=== PATIENT | female | born 1955 | race Caucasian/White ===

== ENCOUNTER 2018-07-25 16:12 | Inpatient (IN) | payer OTHER ==
[~2018-07-25] VITALS: Ht 170.2 cm; Wt 67.1 kg
[2018-07-25] VITALS (11 sets, daily range): BP systolic 131–208; BP diastolic 61–106
[2018-07-25] MEDS ORDERED: KETOROLAC 30 MG/ML VIAL. IV ONE (16:45)
--- NOTE | 2018-07-25 16:48 | RAD ---
CT CODE STROKE HEAD WO History: Code stroke Comparison: None. Technique: Noncontrast CT imaging was performed of the head. Exposure: One or more of the following individualized dose reduction techniques were utilized for this examination: 1. Automated exposure control 2. Adjustment of the mA and/or kV according to patient size 3. Use of iterative reconstruction technique. Findings: No acute extra-axial or parenchymal hemorrhage is identified. There is no new significant intra-axial mass effect, midline shift, or extra-axial fluid collection. There are again may be what represents a small right superior cerebellar arachnoid cyst. The pineda-white differentiation of the major vascular territories is preserved. The ventricles, sulci, and cisterns are within normal limits in size and configuration. The mastoid air cells and the visualized paranasal sinuses are aerated. No acute calvarial abnormality is identified. Impression: 1. No acute intracranial abnormality is identified. If there is concern for evolving or acute ischemia, followup CT or MRI could be beneficial. FOR INTERNAL CODING PURPOSES Critical result: Findings discussed with ZULEYKA WATSON at 07/25/2018 4:43 PM. RESULT CODE: (C) Electronically signed by: José Luis Castro MD (07/25/2018 4:45 PM) [id number]
[2018-07-25 16:55] LABS: BASO # 0.1 x10^3/uL (0.0-0.2); BASO % 1 % (0-3); EOS # 0.1 x10^3/uL (0.0-0.7); EOS % 2 % (0-3); HEMATOCRIT 48.7 % (36.0-47.0); HEMOGLOBIN 16.3 g/dL (12.0-15.5); LYMPH # 2.6 x10^3/uL (1.0-4.8); LYMPH % 41 % (24-48); MEAN CORPUSCULAR HEMOGLOBIN 29 pg (25-35); MEAN CORPUSCULAR HGB CONC 34 g/dL (31-37); MEAN CORPUSCULAR VOLUME 86 fL (79-100); MONO # 0.4 x10^3/uL (0.0-1.1); MONO % 6 % (0-9); NEUT # 3.1 x10^3uL (1.8-7.7); NEUT % 50 % (31-73); PLATELET COUNT 216 x10^3/uL (140-400); RED BLOOD COUNT 5.69 x10^6/uL (3.50-5.40); RED CELL DISTRIBUTION WIDTH 14.8 % (11.5-14.5); WHITE BLOOD COUNT 6.2 x10^3/uL (4.0-11.0)
--- NOTE | 2018-07-25 16:57 | RAD ---
EXAM: Chest, single view. HISTORY: Headache. Memory loss. COMPARISON: None. FINDINGS: A frontal view of the chest is obtained. There is no infiltrate, pleural effusion or pneumothorax. The heart is normal in size. IMPRESSION: No acute pulmonary finding. Electronically signed by: Vi Carbajal MD (07/25/2018 4:54 PM) [facility]
[2018-07-25 17:11] LABS: ALBUMIN 4.7 g/dL (3.4-5.0); ALBUMIN/GLOBULIN RATIO 1.5 (1.0-1.7); CALCIUM 9.6 mg/dL (8.5-10.1); CREATININE 0.8 mg/dL (0.6-1.0); GFR 72.7; POTASSIUM 3.2 mmol/L (3.5-5.1); TOTAL BILIRUBIN 0.4 mg/dL (0.2-1.0); TOTAL PROTEIN 7.8 g/dL (6.4-8.2)
--- NOTE | 2018-07-25 17:20 | PHYS DOC ---
Past History Past Medical History: Anxiety, Hypertension, Other (headache) Smoking: Non-smoker Adult General Chief Complaint Chief Complaint: ALTERED MENTAL STATUS HPI HPI Patient is a 62 year old female who is in by her because of memory loss and headache. Patient state they had an argument at 10 AM today and around 11 AM she complaining of headache and around 1440 (1.5 hours prior to arrival to ER) she suddenly lost her memory and didn't know what she was doing and forget about this morning argument and the trip her had recently to [place] for 3 weeks. Patient states she does not remember what happened to her and how she got to the car and came to the hospital. Patient states she thinks she has migraine headaches with aura. Patient rated her headache 6/10 and complaining of nausea without focal neuro deficit. Patient states she gets episodes of headaches frequently without diagnose of headache. Patient does not have any medical problem and denies using drugs and alcohol. Review of Systems Review of Systems Constitutional: Denies fever or chills [] Eyes: Denies change in visual acuity, redness, or eye pain [] HENT: Denies nasal congestion or sore throat [] Respiratory: Denies cough or shortness of breath [] Cardiovascular: No additional information not addressed in HPI [] GI: Denies abdominal pain, vomiting, bloody stools or diarrhea , reports nausea [] : Denies dysuria or hematuria [] Musculoskeletal: Denies back pain or joint pain [] Integument: Denies rash or skin lesions [] Neurologic: Reports headache, denies focal weakness or sensory changes [] Endocrine: Denies polyuria or polydipsia [] All other systems were reviewed and found to be within normal limits, except as documented in this note. Current Medications Current Medications Current Medications Medications (Trade) Dose Ordered Sig/Júnior Start Time Stop Time Status Last Admin Dose Admin Ketorolac Tromethamine (Toradol 30mg Vial) 30 mg 1X ONCE 07/25/18 16:45 07/25/18 16:55 DC 07/25/18 16:45 30 MG Allergies Allergies Allergies Coded Allergies Type Severity Reaction Last Updated Verified No Known Drug Allergies 07/25/18 No Physical Exam Physical Exam Constitutional: Well developed, well nourished, no acute distress, non-toxic appearance. [] HENT: Normocephalic, atraumatic, bilateral external ears normal, oropharynx moist, no oral exudates, nose normal. [] Eyes: PERRLA, EOMI, conjunctiva normal, no discharge. [] Neck: Normal range of motion, no tenderness, supple, no stridor. [] Cardiovascular:Heart rate regular rhythm, no murmur [] Lungs & Thorax: Bilateral breath sounds clear to auscultation [] Abdomen: Bowel sounds normal, soft, no tenderness, no masses, no pulsatile masses. [] Skin: Warm, dry, no erythema, no rash. [] Back: No tenderness, no CVA tenderness. [] Extremities: No tenderness, no cyanosis, no clubbing, ROM intact, no edema. [] Neurologic: Alert and oriented X 3, normal motor function, normal sensory function, no focal deficits noted. [] Psychologic: Affect anxious, judgement normal, mood normal. [] Current Patient Data Lab Results Laboratory Tests Test 07/25/18 16:20 07/25/18 16:33 White Blood Count 6.2 x10^3/uL (4.0-11.0) Red Blood Count 5.69 x10^6/uL (3.50-5.40) H Hemoglobin 16.3 g/dL (12.0-15.5) H Hematocrit 48.7 % (36.0-47.0) H Mean Corpuscular Volume 86 fL (79-100) Mean Corpuscular Hemoglobin 29 pg (25-35) Mean Corpuscular Hemoglobin Concent 34 g/dL (31-37) Red Cell Distribution Width 14.8 % (11.5-14.5) H Platelet Count 216 x10^3/uL (140-400) Neutrophils (%) (Auto) 50 % (31-73) Lymphocytes (%) (Auto) 41 % (24-48) Monocytes (%) (Auto) 6 % (0-9) Eosinophils (%) (Auto) 2 % (0-3) Basophils (%) (Auto) 1 % (0-3) Neutrophils # (Auto) 3.1 x10^3uL (1.8-7.7) Lymphocytes # (Auto) 2.6 x10^3/uL (1.0-4.8) Monocytes # (Auto) 0.4 x10^3/uL (0.0-1.1) Eosinophils # (Auto) 0.1 x10^3/uL (0.0-0.7) Basophils # (Auto) 0.1 x10^3/uL (0.0-0.2) Glucose (Fingerstick) 120 mg/dL (70-99) H EKG EKG EKG interpreted by me. EKG at 1635 showed sinus tachycardia at rate of 109, few PVCs, left atrial abnormalities, poor R-wave progress in anteroseptal leads, no acute ST and T-wave abnormalities. Radiology/Procedures Radiology/[place] [address] IMAGING REPORT Signed PATIENT: ABILIO SANCHEZ ACCOUNT: [id number] : 1955 LOCATION: ER AGE: 62 SEX: F EXAM STATUS: REG ER ORD. PHYSICIAN: ZULEYKA WATSON MD REASON: headache and memory loss PROCEDURE: PORTABLE CHEST 1V EXAM: Chest, single view. HISTORY: Headache. Memory loss. COMPARISON: None. FINDINGS: A frontal view of the chest is obtained. There is no infiltrate, pleural effusion or pneumothorax. The heart is normal in size. IMPRESSION: No acute pulmonary finding. Electronically signed by: Vi Prabhakar MD (07/25/2018 4:54 PM) [place] [id number] DICTATED AND SIGNED BY: VI PRABHAKAR MD DATE: 07/25/18 314 CC: ROSALINDA HAIDER MD; ZULEYKA WATSON MD ~ [place] [id number] IMAGING REPORT Signed PATIENT: ABILIO SANCHEZ ACCOUNT: [id number] : 1955 LOCATION: ER AGE: 62 SEX: F EXAM STATUS: REG ER ORD. PHYSICIAN: ZULEYKA WATSON MD REASON: ams PROCEDURE: CT CODE STROKE HEAD WO CT CODE STROKE HEAD WO History: Code stroke Comparison: None. Technique: Noncontrast CT imaging was performed of the head. Exposure: One or more of the following individualized dose reduction techniques were utilized for this examination: 1. Automated exposure control 2. Adjustment of the mA and/or kV according to patient size 3. Use of iterative reconstruction technique. Findings: No acute extra-axial or parenchymal hemorrhage is identified. There is no new significant intra-axial mass effect, midline shift, or extra-axial fluid collection. There are again may be what represents a small right superior cerebellar arachnoid cyst. The pineda-white differentiation of the major vascular territories is preserved. The ventricles, sulci, and cisterns are within normal limits in size and configuration. The mastoid air cells and the visualized paranasal sinuses are aerated. No acute calvarial abnormality is identified. Impression: 1. No acute intracranial abnormality is identified. If there is concern for evolving or acute ischemia, followup CT or MRI could be beneficial. FOR INTERNAL CODING PURPOSES Critical result: Findings discussed with ZULEYKA WATSON at 07/25/2018 4:43 PM. RESULT CODE: (C) Electronically signed by: Shant Castro MD (07/25/2018 4:45 PM) [id number] DICTATED AND SIGNED BY: SHANT CASTRO MD DATE: 07/25/181641 CC: ROSALINDA HAIDER MD; ZULEYKA WATSON MD ~ Course & Med Decision Making Course & Med Decision Making Pertinent Labs and Imaging studies reviewed. (See chart for details) Evaluation of patient in ER showed 62-year-old female patient brought in by her because sudden onset of memory loss. Patient was anxious in ER and was not able to tell the month but did not have any focal neuro deficit. Patient was not a candidate for TPA because of NIHSS scale of 1. Patient gradually became calm. Patient had blood pressure more than 200 and states she doesn't have any medical problem but her son states she has history of hypertension without taking any medication. Patient's blood pressure stayed more than 200 and she treated with labetalol with decrease of tachycardia and elevation of blood pressure. Labs was unremarkable except for increase of hemoglobin and hematocrit. Plan to admit patient with diagnosis of headache and hypertensive urgency. Dr Newell accepted admission. Dragon Disclaimer Dragon Disclaimer This electronic medical record was generated, in whole or in part, using a voice recognition dictation system. Departure Departure: Impression: Primary Impression: Hypertensive emergency Additional Impressions: Headache Confusion Anxiety Disposition: 09 ADMITTED INPATIENT (at 1800) Admitting Physician: Analilia Newell (accepted admission at 1759) Condition: IMPROVED Referrals: ROSALINDA HAIDER MD (PCP) NIHSS - ED NIH Stroke Scale: NIH Stroke Scale Response (Comments) Value Level of Consciousness: 0 Alert/Responsive 0 LOC Questions: 1 Answers one correctly 1 LOC Commands: 0 Performs both tasks 0 Best Gaze: 0 Normal 0 Visual: 0 No visual loss 0 Facial Palsy: 0 Normal, symmetrical 0 Motor - Left Arm 0 No drift 0 Motor - Right Arm 0 No drift 0 Motor - Left Leg 0 No drift 0 Motor: Right Leg 0 No drift 0 Limb Ataxia: 0 Absent 0 Sensory: 0 No loss 0 Best Language: 0 Normal 0 Dysathria: 0 Normal 0 Extinction and Inattention: 0 Normal 0 Total 1 Problem Qualifiers ZULEYKA WATSON MD Jul 25, 2018 17:19
[2018-07-25] MEDS ORDERED: LABETALOL 20 MG/4 ML DISP.SYRIN. IVP ONE (17:30)
[2018-07-25] MEDS ORDERED: ONDANSETRON PF 4 MG/2 ML VIAL. IV ONE (17:30)
[2018-07-25] MEDS ORDERED: LABETALOL 100 MG/20 ML VIAL. IV ONE (17:31)
--- NOTE | 2018-07-25 18:27 | EKG ---
[address] [address] Test Date: 2018-07-25 Test Time: 16:35:31 Pat Name: ABILIO SANCHEZ Department: Room: Gender: F Mouthpiece Maker: JAYLON : 1955 Requested By: ZULEYKA WATSON Order Number: [id number] Reading MD: Neil Guardado Measurements Intervals [place] Rate: 109 P: 70 LA: 128 QRS: 40 QRSD: 94 T: 47 QT: 326 QTc: 441 Interpretive Statements SINUS TACHYCARDIA VENTRICULAR PREMATURE COMPLEX(ES) LEFT ATRIAL ABNORMALITY Electronically Signed On 08-01-2018 11:02:00 MANUFACTURING OPERATOR by Neil Guardado
[2018-07-25] MEDS ORDERED: POTASSIUM CHLORIDE 20 MEQ/15 ML ORAL LIQUID. PO ONE (18:45)
[2018-07-25] MEDS ORDERED: hydrALAZINE 20 MG/ML VIAL. IV ONE (19:00)
[2018-07-25 19:34] LABS: BARBITURATES NEG (NEG); BENZODIAZEPINES NEG (NEG); CANNABINOIDS NEG (NEG); COCAINE NEG (NEG); METHADONE NEG (NEG); OPIATES NEG (NEG); PHENCYCLIDINE NEG (NEG)
[2018-07-25 19:37] LABS: AMPHETAMINE/METHAMPHETAMINE NEG (NEG)
[2018-07-25 19:46] LABS: BILIRUBIN,URINE NEG (NEG); CLARITY,URINE CLEAR; COLOR,URINE STRAW; GLUCOSE,URINE NEG (NEG); NITRITE,URINE NEG (NEG); RBC,URINE OCC /HPF (0-2); UROBILINOGEN,URINE 0.2 mg/dL (0.2 mg/dL)
[2018-07-25 19:51] LABS: BACTERIA,URINE FEW /HPF (0-FEW)
[2018-07-25 19:52] LABS: WBC,URINE OCC /HPF (0-4)
[2018-07-25] MEDS ORDERED: ACETAMINOPHEN 325 MG TABLET PO PRN (21:15)
[2018-07-25] MEDS: LORazepam 0.5 MG TABLET PO PRN (21:20)
[2018-07-25 22:34] LABS: SQUAMOUS EPITHELIAL CELL,UR FEW /LPF
[2018-07-26] VITALS (21 sets, daily range): BP systolic 111–190; BP diastolic 55–97
[2018-07-26 06:16] LABS: BASO % 1 % (0-3); EOS # 0.1 x10^3/uL (0.0-0.7); EOS % 2 % (0-3); HEMATOCRIT 42.7 % (36.0-47.0); HEMOGLOBIN 14.5 g/dL (12.0-15.5); LYMPH # 2.3 x10^3/uL (1.0-4.8); LYMPH % 38 % (24-48); MEAN CORPUSCULAR HEMOGLOBIN 29 pg (25-35); MEAN CORPUSCULAR HGB CONC 34 g/dL (31-37); MEAN CORPUSCULAR VOLUME 84 fL (79-100); MONO # 0.6 x10^3/uL (0.0-1.1); MONO % 10 % (0-9); NEUT % 50 % (31-73); PLATELET COUNT 231 x10^3/uL (140-400); RED BLOOD COUNT 5.06 x10^6/uL (3.50-5.40); RED CELL DISTRIBUTION WIDTH 15.3 % (11.5-14.5); WHITE BLOOD COUNT 6.1 x10^3/uL (4.0-11.0)
[2018-07-26 06:31] LABS: ALBUMIN 3.8 g/dL (3.4-5.0); ALBUMIN/GLOBULIN RATIO 1.3 (1.0-1.7); CREATININE 0.9 mg/dL (0.6-1.0); GFR 63.4; POTASSIUM 3.4 mmol/L (3.5-5.1); TOTAL BILIRUBIN 0.5 mg/dL (0.2-1.0); TOTAL PROTEIN 6.8 g/dL (6.4-8.2)
[2018-07-26] MEDS ORDERED: POTASSIUM CHLORIDE 20 MEQ TABLET.ER. PO ONE (07:30)
--- NOTE | 2018-07-26 09:49 | PDOC2 ---
CONSULT Date of Admission DATE: 07/26/18 TIME: 09:46 Reason for Consult: accelerated hypertension Problem List Problems Medical Problems: (1) Anxiety Status: Acute (2) Confusion Status: Acute (3) Headache Status: Acute (4) Hypertensive emergency Status: Acute History of Present Illness Ms Ferreira is a 62 year old female with history of hypertension and atypical migraine (aura but no pain) who presented to the ED with complaints of a period of amnesia and confusion. She apparently was angry with her when she developed aura and then became confused, disoriented and acting out of character. She denies memory of these events. On arrival to the ED she was apparently still disoriented and blood pressure was very elevated. She was treated with labetalol and Cardene, admitted and consult was called. Her blood pressure normalized after about 2 hours on the Cardene which is now off. She reports "white coat syndrome" She denies any chest pain, dyspnea, palpitations, lightheadedness or syncope. She is hesitant to take antihypertensives as she reports lower pressures when at home. Past Medical History hypertension currently on no medications and atypical migraine Past Surgical History appendectomy and colonoscopy. Family History father with lung cancer, mother with brain tumor. No premature coronary disease. Social History with three children. Non smoker. Occasional ETOH, Marijuana once weekly. No other illicit drugs Current Medications Current Medications Ketorolac Tromethamine (Toradol 30mg Vial) 30 mg 1X ONCE IV Last administered on 07/25/18at 16:45; Start 07/25/18 at 16:45; Stop 07/25/18 at 16:55; Status DC Ondansetron HCl (Zofran) 4 mg 1X ONCE IV Last administered on 07/25/18at 17:30 ; Start 07/25/18 at 17:30; Stop 07/25/18 at 17:31; Status DC Labetalol HCl (Normodyne) 10 mg 1X ONCE IVP Last administered on 07/25/18at 17: 30; Start 07/25/18 at 17:30; Stop 07/25/18 at 17:32; Status DC Labetalol HCl (Normodyne) 100 mg STK-MED ONCE IV ; Start 07/25/18 at 17:31; Stop 07/25/18 at 17:32; Status DC Potassium Chloride (KCl Oral Soln) 40 meq 1X ONCE PO Last administered on 07/25 18:41; Start 07/25/18 at 18:45; Stop 07/25/18 at 18:46; Status DC Hydralazine HCl (Apresoline) 20 mg 1X ONCE IV Last administered on 07/25/18at 19:03; Start 07/25/18 at 19:00; Stop 07/25/18 at 19:01; Status DC Nicardipine HCl 50 mg/Sodium Chloride 270 ml @ 27 mls/hr CONT PRN IV SEE I/O RECORD Last administered on 07/25/18at 21:37; Start 07/25/18 at 21:15 Lorazepam (Ativan) 0.5 mg PRN Q4HRS PRN PO ANXIETY / AGITATION Last administered on 07/25/18 21:20; Start 07/25/18 at 21:15 Acetaminophen (Tylenol) 650 mg PRN Q6HRS PRN PO PAIN / TEMP Last administered on 07/25/18 21:20; Start 07/25/18 at 21:15 Potassium Chloride (Klor-Con) 40 meq 1X ONCE PO Last administered on at 09:02; Start 07/26/18 at 07:30; Stop 07/26/18 at 07:31; Status DC Aspirin (Aspirin Enteric Coated) 81 mg 1X ONCE PO ; Start 07/26/18 at 09:45; Stop 07/26/18 at 09:46; Status UNV Active Scripts Active Reported No Known Medications Prior To Admisstion (Info) Each 1 Each MC 1X Allergies: Coded Allergies: No Known Drug Allergies (Unverified , 07/25/18) Review of System as per HPI or negative General: Alert, Oriented X3, Cooperative, No acute distress HEENT: Atraumatic, EOMI, Other (Neck: + bruits) Lungs: Clear to auscultation, Normal air movement Heart: Normal S1, Normal S2, Other (no significant murmurs, no gallops, clicks or rubs) Abdomen: Normal bowel sounds, Soft, No tenderness Extremities: No clubbing, No cyanosis, No edema, Normal pulses Neuro: Normal speech, Strength at 5/5 X4 ext Psych/Mental Status: Mental status NL, Mood NL VITALS Vital Signs Date Time Temp Pulse Resp B/P (MAP) Pulse Ox O2 Delivery O2 Flow Rate FiO2 2/27/19 09:33 82 20 190/92 (124) 07/26/18 09:07 98.2 07/26/18 08:30 Room Air 07/26/18 05:00 97 Labs Laboratory Tests Test 07/25/18 16:20 07/25/18 16:33 07/25/18 16:58 07/25/18 19:13 White Blood Count 6.2 x10^3/uL (4.0-11.0) Red Blood Count 5.69 x10^6/uL (3.50-5.40) Hemoglobin 16.3 g/dL (12.0-15.5) Hematocrit 48.7 % (36.0-47.0) Mean Corpuscular Volume 86 fL (79-100) Mean Corpuscular Hemoglobin 29 pg (25-35) Mean Corpuscular Hemoglobin Concent 34 g/dL (31-37) Red Cell Distribution Width 14.8 % (11.5-14.5) Platelet Count 216 x10^3/uL (140-400) Neutrophils (%) (Auto) 50 % (31-73) Lymphocytes (%) (Auto) 41 % (24-48) Monocytes (%) (Auto) 6 % (0-9) Eosinophils (%) (Auto) 2 % (0-3) Basophils (%) (Auto) 1 % (0-3) Neutrophils # (Auto) 3.1 x10^3uL (1.8-7.7) Lymphocytes # (Auto) 2.6 x10^3/uL (1.0-4.8) Monocytes # (Auto) 0.4 x10^3/uL (0.0-1.1) Eosinophils # (Auto) 0.1 x10^3/uL (0.0-0.7) Basophils # (Auto) 0.1 x10^3/uL (0.0-0.2) Sodium Level 142 mmol/L (136-145) Potassium Level 3.2 mmol/L (3.5-5.1) Chloride Level 103 mmol/L (98-107) Carbon Dioxide Level 27 mmol/L (21-32) Anion Gap 12 (6-14) Blood Urea Nitrogen 15 mg/dL (7-20) Creatinine 0.8 mg/dL (0.6-1.0) Estimated GFR (Cockcroft-Gault) 72.7 BUN/Creatinine Ratio 19 (6-20) Glucose Level 131 mg/dL (70-99) Calcium Level 9.6 mg/dL (8.5-10.1) Total Bilirubin 0.4 mg/dL (0.2-1.0) Aspartate Amino Transf (AST/SGOT) 25 U/L (15-37) Alanine Aminotransferase (ALT/SGPT) 29 U/L (14-59) Alkaline Phosphatase 58 U/L (46-116) Creatine Kinase 88 U/L (26-192) Troponin I Quantitative < 0.017 ng/mL (0-0.055) Total Protein 7.8 g/dL (6.4-8.2) Albumin 4.7 g/dL (3.4-5.0) Albumin/Globulin Ratio 1.5 (1.0-1.7) Glucose (Fingerstick) 120 mg/dL (70-99) Prothrombin Time 10.3 SEC (9.4-11.4) Prothromb Time International Ratio 1.0 (0.9-1.1) Activated Partial Thromboplast Time 26 SEC (23-33) Urine Collection Type Unknown Urine Color Straw Urine Clarity Clear Urine pH 7.5 Urine Specific [place] 1.020 Urine Protein 100 mg/dl (NEG-TRACE) Urine Glucose (UA) Neg mg/dL (NEG) Urine Ketones (Stick) 40 mg/dL (NEG) Urine Blood Neg (NEG) Urine Nitrite Neg (NEG) Urine Bilirubin Neg (NEG) Urine Urobilinogen Dipstick 0.2 mg/dL (0.2 mg/dL) Urine Leukocyte Esterase Neg (NEG) Urine RBC Occ /HPF (0-2) Urine WBC Occ /HPF (0-4) Urine Squamous Epithelial Cells Few /LPF Urine Bacteria Few /HPF (0-FEW) Urine Opiates Screen Neg (NEG) Urine Methadone Screen Neg (NEG) Urine Barbiturates Neg (NEG) Urine Phencyclidine Screen Neg (NEG) Urine Amphetamine/Methamphetamine Neg (NEG) Urine Benzodiazepines Screen Neg (NEG) Urine Cocaine Screen Neg (NEG) Urine Cannabinoids Screen Neg (NEG) Urine Ethyl Alcohol Neg (NEG) Test 07/26/18 05:40 White Blood Count 6.1 x10^3/uL (4.0-11.0) Red Blood Count 5.06 x10^6/uL (3.50-5.40) Hemoglobin 14.5 g/dL (12.0-15.5) Hematocrit 42.7 % (36.0-47.0) Mean Corpuscular Volume 84 fL (79-100) Mean Corpuscular Hemoglobin 29 pg (25-35) Mean Corpuscular Hemoglobin Concent 34 g/dL (31-37) Red Cell Distribution Width 15.3 % (11.5-14.5) Platelet Count 231 x10^3/uL (140-400) Neutrophils (%) (Auto) 50 % (31-73) Lymphocytes (%) (Auto) 38 % (24-48) Monocytes (%) (Auto) 10 % (0-9) Eosinophils (%) (Auto) 2 % (0-3) Basophils (%) (Auto) 1 % (0-3) Neutrophils # (Auto) 3.0 x10^3uL (1.8-7.7) Lymphocytes # (Auto) 2.3 x10^3/uL (1.0-4.8) Monocytes # (Auto) 0.6 x10^3/uL (0.0-1.1) Eosinophils # (Auto) 0.1 x10^3/uL (0.0-0.7) Basophils # (Auto) 0.0 x10^3/uL (0.0-0.2) Sodium Level 141 mmol/L (136-145) Potassium Level 3.4 mmol/L (3.5-5.1) Chloride Level 103 mmol/L (98-107) Carbon Dioxide Level 29 mmol/L (21-32) Anion Gap 9 (6-14) Blood Urea Nitrogen 15 mg/dL (7-20) Creatinine 0.9 mg/dL (0.6-1.0) Estimated GFR (Cockcroft-Gault) 63.4 BUN/Creatinine Ratio 17 (6-20) Glucose Level 105 mg/dL (70-99) Calcium Level 9.0 mg/dL (8.5-10.1) Total Bilirubin 0.5 mg/dL (0.2-1.0) Aspartate Amino Transf (AST/SGOT) 17 U/L (15-37) Alanine Aminotransferase (ALT/SGPT) 21 U/L (14-59) Alkaline Phosphatase 44 U/L (46-116) Total Protein 6.8 g/dL (6.4-8.2) Albumin 3.8 g/dL (3.4-5.0) Albumin/Globulin Ratio 1.3 (1.0-1.7) Images sinus rhythm, delayed R progression, nonspecific abn. no acute ischemic changes. Assessment/Plan 1. accelerated hypertension - now controlled. Normal LV function and wall motion. borderline LVH. Consider ambulatory BP monitoring and may benefit from at least low dose ARB for afterload reduction if she will agree. 2. mental status change /TIA - neuro consulted. 3. carotid bruit - carotid duplex 4. anxiety - per PCP JULIANN FREEMAN APRN Jul 26, 2018 09:49
[2018-07-26] MEDS: LORazepam 0.5 MG TABLET PO PRN ×2 (09:53→14:29)
[2018-07-26] MEDS ORDERED: ASPIRIN ENTERIC COATED 81 MG TABLET.DR. PO ONE (10:00)
--- NOTE | 2018-07-26 13:47 | RAD ---
EXAM: Carotid Doppler sonogram. HISTORY: Carotid bruit. TECHNIQUE: Mejia scale and color Doppler sonographic evaluation of the neck with spectral waveform analysis was performed and static images are submitted for review. FINDINGS: There is moderate atherosclerotic plaque within the proximal right external carotid artery. The peak systolic velocity within the right common carotid artery is 74 cm/sec. The peak systolic velocity within the right internal carotid artery is 58 cm/sec and the end diastolic velocity within the right internal carotid artery is 22 cm/sec. The right ICA/CCA ratio is less than 1.0. The peak systolic velocity within the left common carotid artery is 82 cm/sec. The peak systolic velocity within the left internal carotid artery is 50 cm/sec and the end diastolic velocity within the left internal carotid artery is 18 cm/sec. The left ICA/CCA ratio is less than 1.0. There is normal antegrade flow within both vertebral arteries. There is an elevated peak systolic velocity within the right external carotid artery measuring 258 cm/s. IMPRESSION: 1. No Doppler evidence of hemodynamically significant stenosis involving the vertebral arteries or internal carotid arteries. 2. Moderate atherosclerotic plaque within the right external carotid artery with associated increased peak systolic velocities suggesting hemodynamically significant stenosis. PQRS Compliance Statement - Stenosis calculations for CT, MR and conventional angiography are based upon measurement of the distal ICA diameter in accordance with the NASCET methodology. Stenosis calculations for carotid ultrasound studies are derived from validated velocity criteria which are known to correlate with the NASCET methodology. Electronically signed by: Vi Carbajal MD (07/26/2018 1:44 PM) [place] [id number]
--- NOTE | 2018-07-26 14:47 | HP ---
ADMIT DATE: 07/25/2018 HISTORY OF PRESENT ILLNESS: The patient is a 62-year-old female patient, who was brought to the Emergency Room by her . She has a period of what seemed to be amnesia and confusion. According to her , they had some form of an argument at around 10:00 in the morning. She was angry. Apparently he was in [place] for almost 3 weeks and he just arrived and she apparently developed some aura with scintillating light, but no migraine headache. She became confused, disoriented and has a period of amnesia, questioning what she was doing, why are things there and why she is in the hospital; however, she was able to interact with the nursing staff and ER physician without difficulty. By the time she arrived to the Emergency Room, she continued to be disoriented and her blood pressure was noted to be extremely high and she was treated for headache, nausea and eventually did receive labetalol injection 10 mg twice and was admitted to the ICU and we did start her on Cardene drip that she got only for about 2 hours, then her blood pressure came down and apparently she has what seemed to be white coat syndrome where her blood pressure just dramatically arise whenever any doctor comes and talk to her or when she goes to her doctor in the office. She also noticed that her blood pressure continued to rise if even her son tries to check it. PAST MEDICAL HISTORY: Significant for hypertension for which she has taken blood pressure medication, although she is currently not taking any. She has also history of migraine aura, but no migraine headache. PAST SURGICAL HISTORY: Significant for appendectomy and colonoscopy. ALLERGIES: She has no known drug allergies. MEDICATIONS: She apparently does not take any medication by prescription. FAMILY HISTORY: Has one brother younger and healthy. Her father at age of 65 because of lung cancer and mother at age of 75 because of brain tumor. SOCIAL HISTORY: She is , has 2 sons and 1 daughter. She never smoked. Drinks alcohol occasionally. She smokes marijuana once a week. 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 REVIEW OF SYSTEMS: The patient denied any blurring of vision, cataract, glaucoma or macular degeneration. Denied any earache, tinnitus or sensorineural deafness. Denied any nosebleeds, stuffy nose or postnasal drip. Denied any sore throat, sore tongue, toothache, hoarseness of voice or difficulty swallowing. Denied any nausea, vomiting, diarrhea or constipation. Denied any hematemesis, melena or hematochezia. Denied any dysuria, frequency or hematuria. Denied any chest pain, shortness of breath, orthopnea or paroxysmal nocturnal dyspnea. Denied any cough, phlegm or hemoptysis. Denied any dizziness, lightheadedness or vertigo. Did complain of headache. PHYSICAL EXAMINATION: GENERAL: On arrival to the Emergency Room, she apparently was somewhat confused, but she was, however, pale, but no jaundice, cyanosis or thyromegaly. No jugular venous distension. No limb edema. VITAL SIGNS: Her heart rate was 85, blood pressure was 210/150, temperature was 98, respiratory rate was 20, and oxygen saturation was 96%. HEAD, EYES, EARS, NOSE AND THROAT: Showed normocephalic, atraumatic. NECK: Supple. HEART: Showed normal first and second heart sounds. No gallop, rub or murmur. CHEST: Clear to auscultation. No crepitation or rhonchi. ABDOMEN: Distended, soft, nontender. No guarding or rigidity. No organomegaly. All hernial orifices are intact. Bowel sounds normal. NEUROLOGIC: She was apparently confused according to her , questioning many anything that she normally knows very well including things that in her house; however, she has no lateralizing signs. All her cranial nerves are intact. EXTREMITIES: She moves extremities without difficulty. She ambulates without assistance or assistive devices. She has had lab work. It is not available for me to review. The CT scan that apparently was normal. She was treated for nausea and also was given labetalol 10 mg IV twice while in the Emergency Room and was admitted to the ICU where she was started on Cardene drip that only last ____ hours and then her blood pressure has normalized. Apparently, her blood pressure is extremely labile and whenever any doctor comes to talk to her, her blood pressure keeps arising. This was noted by the nursing staff and I noted myself when I went to see her, actually the blood pressure has risen up to 210/150, although she was asymptomatic at the time. The problem is that if she tried herself to check blood pressure continued to rise and the same thing if her son try to check the blood pressure, her blood pressure continued to rise steadily and perhaps only way to ascertain that she has high blood pressure, is to do an extended period of blood pressure monitoring. Her EKG did not show any evidence of longstanding hypertension and she has no evidence of electrocardiographic left ventricular hypertrophy. The R-wave in aVL is about 7. The S wave in V1 and R-wave in V6 does not meet the criteria for left ventricular hypertrophy. Her kidney function also is normal. Her creatinine is only 0.93. I am concerned that patient might have pheochromocytoma and she obviously needs to be referred to an gaming investigator to look into that. She will need 24-hour urine collection for VMA, metanephrine and normetanephrine. KARENA BROOKS MD DR: ENEIDA/maxwell JOB#: [id number] / [id number]
--- NOTE | 2018-07-26 16:18 | CARD ---
MR#: [id number] Date of Study: 07/26/2018 Ordering Physician: KARENA BROOKS, Referring Physician: KARENA BROOKS, Tech: Jackelyn Chilel APPROVED REPORT EXAM: Two-dimensional and M-mode echocardiogram with Doppler and color Doppler. Other Information Quality : AverageHR: 78bpm Rhythm : NSR INDICATION Hypertension/HCVD 2D DIMENSIONS RVDd2.9 (2.9-3.5cm)Left Atrium(2D)2.6 (1.6-4.0cm) IVSd1.1 (0.7-1.1cm)Aortic Root(2D)3.0 (2.0-3.7cm) LVDd4.0 (3.9-5.9cm)LVOT Diameter2.2 (1.8-2.4cm) PWd1.1 (0.7-1.1cm)LVDs2.5 (2.5-4.0cm) FS (%) 37.0 %SV46.0 ml LVEF(%)67.5 (>50%) Aortic Valve AoV Peak Tylor.161.6cm/sAoV VTI30.6cm AO Peak GR.10.4mmHgLVOT Peak Tylor.121.6cm/s LVOT VTI 25.98cmAO Mean GR.6mmHg ACOSTA (VMAX)2.66sl1GKE (VTI)3.18cm2 Mitral Valve MV E Xmaddksa44.0cm/sMV DECEL GZPL604sc MV A Qyfydjjq47.3cm/sE/A Ratio0.9 Pulmonary Valve PV Peak Lrucigui289.1cm/sPV Peak Grad.4mmHg Tricuspid Valve TR P. Shctenlq429ue/sRAP XEUWKNMW7ftEv TR Peak Gr.35gpGoTQGT65agUz Pulmonary Vein S1 Xagixvqr23.5cm/sD2 Ccoflngc57.2cm/s LEFT VENTRICLE The left ventricle is normal size. There is borderline concentric left ventricular hypertrophy. The l eft ventricular systolic function is normal. The Ejection Fraction is 60-65%. There is normal LV segm ental wall motion. Transmitral Doppler flow pattern is Grade I-abnormal relaxation pattern. RIGHT VENTRICLE The right ventricle is normal size. There is normal right ventricular wall thickness. The right ventr icular systolic function is normal. ATRIA The left atrium size is normal. The right atrium size is normal. The interatrial septum is intact wit h no evidence for an atrial septal defect or patent foramen ovale as noted on 2-D or Doppler imaging. AORTIC VALVE The aortic valve is thickened but opens well. Doppler and Color Flow revealed no significant aortic r egurgitation. There is no significant aortic valvular stenosis. MITRAL VALVE The mitral valve is normal in structure and function. There is no evidence of mitral valve prolapse. There is no mitral valve stenosis. Doppler and Color Flow revealed no mitral valve regurgitation note d. TRICUSPID VALVE The tricuspid valve is normal in structure and function. Doppler and Color Flow revealed no tricuspid valve regurgitation noted. There is no tricuspid valve stenosis. PULMONIC VALVE The pulmonic valve is not well visualized. Doppler and Color Flow revealed no pulmonic valvular regur gitation. GREAT VESSELS The aortic root is normal in size. The IVC is normal in size and collapses >50% with inspiration. PERICARDIAL EFFUSION There is no evidence of significant pericardial effusion. Critical Notification Critical Value: No <Conclusion> The left ventricular systolic function is normal. The Ejection Fraction is 60-65%. There is normal LV segmental wall motion. Transmitral Doppler flow pattern is Grade I-abnormal relaxation pattern. There is no evidence of significant pericardial effusion. Signed by : Neil Guardado, Electronically Approved : 07/26/2018 16:17:37
[2018-07-26] MEDS ORDERED: ASPI81TA50 PO (17:14)
[2018-07-26] MEDS ORDERED: LORA-254 PO (17:15)
--- NOTE | 2018-07-26 21:02 | CONS ---
DATE OF CONSULTATION: 07/26/2018 NEUROLOGY CONSULTATION REASON FOR CONSULTATION: Severe headaches. HISTORY OF PRESENT ILLNESS: This is a 62-year-old female who was admitted through the Emergency Room last night after she presented with chief complaints of severe headaches and memory loss. According to the patient, she had an argument with her at 10:00 a.m., then she started having a global severe headaches and memory loss. She stated she lost her memory for several hours prior to admission. The patient stated she has had history of migraine-like headaches, but sometimes presented only with aura described as seeing dots and zigzag lines, but usually does not follow with the symptoms, but usually those symptoms does not follow by severe typical migraine headaches. The patient would have 1-2 auras a year. The last one was several months ago. The patient has had history of hypertension, but she was taking hydrochlorothiazide. She has not been taking the medicine for the last 5 years. In the Emergency Room, she was found to have severe hypertension with systolic blood pressure above 200. Currently, she denies chest pain, shortness of breath or palpitation, dysarthria, dysphagia, weakness or paresthesia. The patient never had any memory loss in the past. She denies any head injuries or TIA or stroke in the past. PAST MEDICAL HISTORY: Significant for hypertension and anxiety, which might aggravate the hypertension. SOCIAL HISTORY: The patient lives with her at home. She has 3 children. She denies smoking, alcohol drinking, or illicit drug use. CURRENT HOME MEDICATIONS: None. REVIEW OF SYSTEMS: A 10-point review of system was performed as mentioned above in history of present illness otherwise unremarkable. ALLERGIES: No known drug allergies. PHYSICAL EXAMINATION: GENERAL: Well-developed, well-nourished white female, not in acute distress. She weighs 148 pounds, height 67 inches. VITAL SIGNS: Blood pressure is fluctuating between 122/70-190/92, likely aggravated by anxiety. The pulse is ranged from 60s-80s. Afebrile, temperature 98.2. HEENT: Normocephalic, atraumatic, otherwise unremarkable. NECK: Supple. Positive for carotid bruit more prominent on the right side. No lymphadenopathy, thyromegaly or JVD. LUNGS: Clear to A and P. CARDIOVASCULAR: Regular rate and rhythm, normal S1, S2. There is no S3, S4, or murmur. ABDOMEN: Soft. Bowel sounds positive. EXTREMITIES: Negative for cyanosis, clubbing, or pitting edema. NEUROLOGIC: 1. MENTAL STATUS: The patient is alert and oriented x 3. The speech is fluent. There is no language dysfunction. Memory, judgment, and abstract thinking are normal. The patient denies hallucination or delusion. 2. CRANIAL NERVES: Visual hawley are full. The pupils are reactive to light and accommodation. The extraocular movements are intact. There is no nystagmus. There is no facial motor or sensory deficit. Hearing is intact bilaterally. The palate is elevated symmetrically. Sternocleidomastoid muscles are powerful bilaterally. The patient shrugs her shoulders symmetrically and protrudes her tongue in the midline without fasciculation or atrophy. 3. MOTOR EXAMINATION: No focal muscle bulk is seen. The tone is normal. The strength is 5/5 throughout. 4. SENSORY EXAMINATION: Reveals normal pinprick, light touch, vibratory and position senses. 5. Deep tendon reflexes are symmetric and active without pathologic responses. 6. Gait and coordination are normal. IMPRESSION: 1. Severe hypertension, probably induced by anxiety; however, the patient has had history of hypertension treated in the past with hydrochlorothiazide. 2. Anxiety disorders. 3. Tension type headaches. 4. Right carotid bruit. RECOMMENDATIONS: 1. Treat the underlying anxiety and tension headache. 2. Treat the underlying hypertension. 3. Carotid Doppler study. 4. Baby aspirin daily. M Soto MOYA MD DR: YOLETTE/maxwell JOB#: [id number] / [id number]
== END 2018-07-26 17:30 | disposition home or self-care (01) | DRG 78 ==
LOC: ER 16:12 → ICU 18:00
PROVIDERS: ADMIT Internal Medicine; ATTEND Internal Medicine
DX: I67.4 Hypertensive encephalopathy (principal); I16.1 Hypertensive emergency; F12.90 Cannabis use, unspecified, uncomplicated; F41.9 Anxiety disorder, unspecified; G43.109 Migraine with aura, not intractable, without status migrainosus; G44.209 Tension-type headache, unspecified, not intractable; I10 Essential (primary) hypertension; Z80.1 Family history of malignant neoplasm of trachea, bronchus and lung
CPT/HCPCS: 36415; 70450; 71045; 80053; 80061; 80307; 81001; 82550; 82947; 84484; 85025; 85610; 85730; 87641; 93005; 93306; 93880; 96374; 96375; J0360; J1885; J2405; J3490; J7050; 99285-25